=== PATIENT | female | born 1950 | race Caucasian/White ===

== ENCOUNTER 2016-12-03 02:19 | Inpatient (IN) | payer MEDICARE, MEDICAID ==
[~2016-12-03] VITALS: Ht 160 cm; Wt 143.6 kg
[2016-12-03] MEDS ORDERED: OPTIRAY 350 100 ML VIAL HMH IV ONE (02:20)
[2016-12-03] MEDS ORDERED: VANCOMYCIN 2,500 MG in SODIUM CHLORIDE 0.9% 500 ML IV ONE (04:50)
[2016-12-03] MEDS ORDERED: SODIUM CHLORIDE 0.9% FLUSH BAG 500 ML IV SCH (06:00)
[2016-12-03] MEDS ORDERED: SALINE FLUSH 10 ML FLUSH PRN (06:00)
[2016-12-03] MEDS ORDERED: SODIUM CHLORIDE 0.9% 1,000 ML IV SCH (06:00)
[2016-12-03] MEDS ORDERED: PHARMACY TO DOSE VANCOMYCIN IV SCH (06:00)
[2016-12-03] MEDS ORDERED: ACETAMINOPHEN 325 MG TAB PO PRN (06:00)
[2016-12-03] MEDS ORDERED: SODIUM CHLORIDE 0.9% 500 ML IV ONE (06:55)
[2016-12-03 08:31] VITALS: BP_SYST 140; RESP 20; TEMP 96.8
[2016-12-03 08:38] VITALS: Ht 160 cm; Wt 143.6 kg
[2016-12-03] MEDS ORDERED: DULoxetine 30 MG CAP PO SCH (09:00)
[2016-12-03] MEDS: **NOTE TO NURSE XX SCH ×3 (09:27→20:00)
[2016-12-03] MEDS: SALINE FLUSH 10 ML FLUSH SCH ×2 (09:28→20:00)
[2016-12-03] MEDS: MEGESTROL ACE 40 MG TAB PO SCH ×4 (13:00→20:41)
[2016-12-03] MEDS ORDERED: ARTIF TEARS OP SOLN 0.4ML EYE EACH PRN (13:10)
[2016-12-03] MEDS: BUSPIRONE HCL 10 MG TAB PO SCH ×2 (13:33→20:41)
[2016-12-03] MEDS: PRAMIPEXOLE 0.5 MG TAB PO SCH ×2 (13:35→20:41)
[2016-12-03] MEDS ORDERED: MISSING DOSE XX ONE ×2 (13:40→22:40)
[2016-12-03] MEDS: ATROPINE 1% OP SOLN SL PRN ×4 (14:22→18:30)
[2016-12-03] MEDS: LORAZEPAM 1 MG/0.5 ML SL PRN ×5 (14:58→22:31)
[2016-12-03] MEDS: MORPHINE 20 MG/ML CONC. SL PRN ×4 (15:03→22:32)
[2016-12-03] MEDS ORDERED: SCOPOLAMINE PATCH TRANSDERM SCH (15:19)
[2016-12-03] MEDS ORDERED: GLYCOPYRROLATE 0.2 MG/ML VIAL IV PRN (15:20)
[2016-12-03] MEDS: GLYCOPYRROLATE 0.2 MG/ML VIAL IV PRN ×4 (15:42→22:58)
== END 2016-12-04 02:43 | disposition expired | DRG 871 ==
LOC: ENRESERVTM → ENRESERVDT → ER 02:19 → EMR 05:56 → ENPENDDIS 05:56 → 3NT 07:31
PROVIDERS: ADMIT Family Medicine; ATTEND Family Medicine
DX: A41.9 Sepsis, unspecified organism (principal); J18.9 Pneumonia, unspecified organism; J96.01 Acute respiratory failure with hypoxia; G93.40 Encephalopathy, unspecified; C79.9 Secondary malignant neoplasm of unspecified site; Z68.43 Body mass index [BMI] 50.0-59.9, adult; J44.0 Chronic obstructive pulmonary disease with (acute) lower respiratory infection; N39.0 Urinary tract infection, site not specified; E66.01 Morbid (severe) obesity due to excess calories; E11.9 Type 2 diabetes mellitus without complications; D64.9 Anemia, unspecified; Z85.43 Personal history of malignant neoplasm of ovary; Z66 Do not resuscitate; I10 Essential (primary) hypertension; Z51.5 Encounter for palliative care; F32.9 Major depressive disorder, single episode, unspecified; E78.5 Hyperlipidemia, unspecified; G25.81 Restless legs syndrome; Z82.49 Family history of ischemic heart disease and other diseases of the circulatory system; Z79.51 Long term (current) use of inhaled steroids
CPT/HCPCS: 36415; 70450; 71010; 71260; 80053; 81001; 82553; 83735; 83880; 84484; 85025; 85379; 85610; 85730; 87040; 87077; 87088; 87186; 93005; 99222